=== PATIENT | female | born 1995 | race Caucasian/White ===

== ENCOUNTER → 2017-09-29 13:57 | Outpatient (CLI) | payer MEDICAID ==
[2016-07-13 14:50] VITALS: BMI 49.1
[~2017-09-29 13:57] MED LIST: ACETAMINOPHEN500 M1 PO; FERROUS SULFAT325 MG PO; HYDROCODON-ACE1 EAC7 PO; IBUPROFEN600 MG PO; PERCOCET 5-3251 TAB PO; PRENATAL COMPLE1 TAB PO
== END | disposition home or self-care (01) ==
LOC: D.RAD 13:57
DX: O26.73 Subluxation of symphysis (pubis) in the puerperium (principal)

== ENCOUNTER 2017-10-06 22:55 | Outpatient (CLI) | payer MEDICAID ==
[2016-07-13 14:50] VITALS: BMI 49.1
[~2017-10-06 22:55] MED LIST changes: -HYDROCODON-ACE1 EAC7 PO
== END 2017-10-06 23:25 | disposition home or self-care (01) ==
LOC: D.LDO 22:55
DX: O26.893 Other specified pregnancy related conditions, third trimester (principal); Z3A.35 35 weeks gestation of pregnancy

== ENCOUNTER 2017-10-30 05:05 | Inpatient (IN) | payer MEDICAID ==
[~2017-10-30] VITALS: Ht 167.6 cm; Wt 134.1 kg
[2017-10-30 06:15] VITALS: BP 116/67; Ht 167.6 cm; Wt 134.1 kg
[2017-10-30 06:33] LABS: HEMOGLOBIN 8.5 g/dL (12-16); MCHC 29.3 g/dL (31.0-37.0); MCV 64.7 fL (80.0-100.0); MEAN PLATELET VOLUME 9.6 fL (7.4-10.4); RBC 4.48 10x6/uL (4.00-5.40); RDW 19.3 % (11.5-14.5)
[2017-10-30 06:41] LABS: APPEARANCE CLOUDY (CLEAR); COLOR YELLOW (YELLOW)
[2017-10-30 06:47] LABS: BACTERIA MODERATE /hpf (NONE SEEN); BILIRUBIN NEGATIVE (NEGATIVE); GLUCOSE NEGATIVE (NEGATIVE); KETONE NEGATIVE (NEGATIVE); NITRITE NEGATIVE (NEGATIVE); PROTEIN NEGATIVE (NEGATIVE); RED CELLS - URINE OCC /hpf (0-5); SPECIFIC GRAVITY 1.025 (1.005-1.020); UROBILINOGEN NORMAL (NORMAL)
[2017-10-30 06:48] LABS: MUCUS <1+ /lpf (NONE SEEN)
[2017-10-30 06:50] LABS: HYALINE CAST RARE /lpf (NONE SEEN)
[2017-10-30 12:45] LABS: HEMATOCRIT 29.7 % (36.0-48.0); HEMOGLOBIN 8.9 g/dL (12-16)
[2017-10-30 14:38] LABS: HEMATOCRIT 29.8 % (36.0-48.0)
[2017-10-31 07:24] LABS: RAPID PLASMA REAGIN Non Reactive (Non Reactive)
== END 2017-10-30 17:40 | disposition home or self-care (01) | DRG 781 ==
LOC: D.LD 05:05 → D.SDCHOLD 07:30 → D.LD 17:40
PROVIDERS: Obstetrics & Gynecology
DX: O99.013 Anemia complicating pregnancy, third trimester (principal); Z3A.39 39 weeks gestation of pregnancy; O99.820 Streptococcus B carrier state complicating pregnancy; O99.213 Obesity complicating pregnancy, third trimester

== ENCOUNTER 2017-11-02 04:56 | Inpatient (IN) | payer MEDICAID ==
[2017-11-02] VITALS (15 sets, daily range): BP systolic 108–132; BP diastolic 62–73; Ht 167.6 cm; Wt 133.8 kg
[~2017-11-02] VITALS: Ht 167.6 cm; Wt 133.8 kg
[2017-11-02 05:43] LABS: APPEARANCE CLEAR (CLEAR); COLOR YELLOW (YELLOW); NITRITE NEGATIVE (NEGATIVE); PROTEIN NEGATIVE (NEGATIVE)
[2017-11-02 05:44] LABS: BILIRUBIN NEGATIVE (NEGATIVE); GLUCOSE NEGATIVE (NEGATIVE); KETONE NEGATIVE (NEGATIVE); UROBILINOGEN NORMAL (NORMAL)
[2017-11-02 05:48] LABS: HEMATOCRIT 33.5 % (36.0-48.0); HEMOGLOBIN 10.6 g/dL (12-16); MCH 21.5 pg (26.0-34.0); MCHC 31.6 g/dL (31.0-37.0); MEAN PLATELET VOLUME 9.5 fL (7.4-10.4); RBC 4.93 10x6/uL (4.00-5.40); RDW 22.8 % (11.5-14.5); WBC 9.9 10x3/uL (4.8-10.8)
[2017-11-02 11:54] LABS: BASOPHILS 0.1 % (0-2); EOSINOPHILS 0.5 % (0-7); HEMATOCRIT 33.5 % (36.0-48.0); HEMOGLOBIN 10.3 g/dL (12-16); IMMATURE GRANULOCYTES 0.6 % (0-5); MCH 20.9 pg (26.0-34.0); MCHC 30.7 g/dL (31.0-37.0); MCV 68.1 fL (80.0-100.0); MEAN PLATELET VOLUME 9.4 fL (7.4-10.4); MONOCYTES 6.4 % (2-11); NEUTROPHILS 80.4 % (40-80); PLATELET COUNT 307 10x3/uL (130-400); RBC 4.92 10x6/uL (4.00-5.40); RDW 22.4 % (11.5-14.5)
[2017-11-02 12:11] LABS: WBC 14.3 10x3/uL (4.8-10.8)
[2017-11-03 00:02] VITALS: BP 120/68
[2017-11-03 06:15] LABS: RAPID PLASMA REAGIN Non Reactive (Non Reactive)
[2017-11-03 06:46] LABS: BASOPHILS 0.3 % (0-2); EOSINOPHILS 2.3 % (0-7); HEMATOCRIT 31.9 % (36.0-48.0); HEMOGLOBIN 9.6 g/dL (12-16); IMMATURE GRANULOCYTES 0.7 % (0-5); LYMPHOCYTES 18.1 % (15-50); MCH 20.8 pg (26.0-34.0); MCHC 30.1 g/dL (31.0-37.0); MCV 69.2 fL (80.0-100.0); MEAN PLATELET VOLUME 9.5 fL (7.4-10.4); NEUTROPHILS 69.6 % (40-80); PLATELET COUNT 258 10x3/uL (130-400); RBC 4.61 10x6/uL (4.00-5.40); RDW 23.2 % (11.5-14.5); WBC 10.9 10x3/uL (4.8-10.8)
[2017-11-03 08:00] VITALS: BP 123/72
[2017-11-03 12:00] VITALS: BP 118/67
[2017-11-03 16:00] VITALS: BP 122/70
[2017-11-03 22:15] VITALS: BP 140/71
[2017-11-04 03:17] VITALS: BP 134/62
[2017-11-04 07:30] VITALS: BP 127/70
[2017-11-04] MEDS ORDERED: HYDROCODON-ACE1 EAC7 PO (14:38)
== END 2017-11-04 15:24 | disposition home or self-care (01) | DRG 766 ==
LOC: D.LD 04:56 → D.WS 04:56 → D.LD 11-03 17:42
PROVIDERS: Obstetrics & Gynecology
PROC: 10D00Z1 Extraction of Products of Conception, Low, Open Approach (ICD-10-PCS; principal; 2017-11-02)
DX: O99.214 Obesity complicating childbirth (principal); Z3A.39 39 weeks gestation of pregnancy; Z37.0 Single live birth; O99.824 Streptococcus B carrier state complicating childbirth; O71.6 Obstetric damage to pelvic joints and ligaments; O99.02 Anemia complicating childbirth; O26.893 Other specified pregnancy related conditions, third trimester; Z67.91 Unspecified blood type, Rh negative

== ENCOUNTER 2019-01-22 07:41 | Emergency (ER) | payer OTHER ==
[~2019-01-22 07:41] MED LIST changes: +HYDROCODON-ACE1 EAC7 PO
[2019-01-22 07:45] VITALS: BMI 48.3
[2019-01-22 08:05] LABS: BASOPHILS 0.3 % (0-2); EOSINOPHILS 2.9 % (0-7); HEMATOCRIT 38.6 % (36.0-48.0); HEMOGLOBIN 12.9 g/dL (12-16); IMMATURE GRANULOCYTES 0.2 % (0-5); LYMPHOCYTES 29.6 % (15-50); MCH 25.9 pg (26.0-34.0); MCHC 33.4 g/dL (31.0-37.0); MCV 77.5 fL (80.0-100.0); MEAN PLATELET VOLUME 9.8 fL (7.4-10.4); MONOCYTES 6.9 % (2-11); NEUTROPHILS 60.1 % (40-80); PLATELET COUNT 305 10x3/uL (130-400); RBC 4.98 10x6/uL (4.00-5.40); WBC 9.2 10x3/uL (4.8-10.8)
[2019-01-22 08:40] LABS: HCG SERUM NEGATIVE (NEGATIVE)
[2019-01-22 08:41] LABS: ALBUMIN 3.2 g/dL (3.4-5.0); ALKALINE PHOSPHATASE 94 U/L (46-116); ALT (SGPT) 24 U/L (10-68); BILIRUBIN - TOTAL 0.09 mg/dL (0.2-1.3); CALC OSMOLALITY 282 mosm/kg (275-300); CALCIUM 8.9 mg/dL (8.5-10.1); CHLORIDE - SERUM 106 mmol/L (98-107); CREATININE - SERUM 0.8 mg/dL (0.6-1.3); GLUCOSE 95 mg/dL (74-106); POTASSIUM - SERUM 4.3 mmol/L (3.5-5.1); PROTEIN - SERUM 6.5 g/dL (6.4-8.2); SODIUM 142 mmol/L (136-145); UREA NITROGEN 13 mg/dL (7-18); eGFR NON AFRICAN AMERICAN > 90 mL/min (90-120)
[2019-01-22 08:43] LABS: AMYLASE - SERUM 41 U/L (25-115); LIPASE 159 U/L (73-393); TROPONIN-I < 0.017 ng/mL (0.000-0.060)
[2019-01-22 09:02] LABS: APPEARANCE CLEAR (CLEAR); BILIRUBIN NEGATIVE (NEGATIVE); COLOR STRAW (YELLOW); GLUCOSE NEGATIVE (NEGATIVE); KETONE NEGATIVE (NEGATIVE); NITRITE NEGATIVE (NEGATIVE); PROTEIN NEGATIVE (NEGATIVE); SPECIFIC GRAVITY 1.015 (1.005-1.020); UROBILINOGEN NORMAL (NORMAL)
[2019-01-22 09:03] LABS: BACTERIA MODERATE /hpf (NONE SEEN); EPITHELIAL CELLS 0-5 /hpf (0-5); MUCUS <1+ /lpf (NONE SEEN); RED CELLS - URINE 0-5 /hpf (0-5)
[2019-01-22 10:43] VITALS: BP 103/63
== END 2019-01-22 10:44 | disposition home or self-care (01) ==
LOC: D.ER 07:41
PROVIDERS: Family Medicine
DX: K80.20 Calculus of gallbladder without cholecystitis without obstruction (principal); R10.32 Left lower quadrant pain